=== PATIENT | male | born 2005 | race Caucasian/White ===

== ENCOUNTER 2024-08-11 13:03 | Emergency (ER) | payer SELFPAY ==
[2024-08-11] MEDS ORDERED: Ketorolac 30 MG/ML SDV IM ONE (14:35)
[2024-08-11] MEDS: Ibuprofen 600 MG Tab PO ONE (14:44)
[2024-08-11] MEDS: Acetaminophen 500 MG Tab PO ONE (14:44)
== END 2024-08-11 15:32 | disposition home or self-care (01) ==
LOC: MW.ED 13:03
DX: S53.104A Unspecified dislocation of right ulnohumeral joint, initial encounter (principal); Z91.048 Other nonmedicinal substance allergy status; W01.0XXA Fall on same level from slipping, tripping and stumbling without subsequent striking against object, initial encounter; Y99.0 Civilian activity done for income or pay
CPT/HCPCS: 29105; 73080; 99283; A9270

== ENCOUNTER 2024-10-25 15:16 | Emergency (ER) | payer SELFPAY | END 2024-10-25 16:30 | disposition left against medical advice (07) | LOC: MW.ED 15:16 | DX: Z53.21 Procedure and treatment not carried out due to patient leaving prior to being seen by health care provider (principal) | CPT/HCPCS: 73660-26-T5; 73660-T5; 99282 ==